=== PATIENT | male | born 1980 | race Caucasian/White ===

== ENCOUNTER 2022-02-22 04:44 | Inpatient (IN) ==
[2022-02-22] MEDS ORDERED: SODIUM CHLORIDE 0.9% 1000ML 1,000 ML IV ONE (04:52)
[2022-02-22] MEDS ORDERED: ONDANSETRON INJ 2 MG/ML 2 ML VIAL IV STA (04:52)
[2022-02-22] MEDS ORDERED: KETOROLAC TROMETHAMINE 15 MG/ML VIAL IV STA (04:54)
[2022-02-22] MEDS ORDERED: MoRPHine SULFATE 4 MG/ML 1 ML CARP\\VIAL IV STA ×2 (04:58→05:42)
--- NOTE | 2022-02-22 05:00 | Emergency Department Note ---
History of Present Illness General Chief complaint: Flank Pain Stated complaint: FLANK PAIN,NAUSEA,VOMITING Time Seen by Provider: 02/22/22 04:48 History of Present Illness Maximum Pain Intensity: 10 This 41-year-old presents to the ER complaining of sudden onset of left flank pain Location: Left flank Quality: Painful Severity: Moderate Duration: Today Timing: Today Context: Patient was concerned and came in Modifying factors: better with nothing; worse with nothing Patient denies chest pain, dyspnea, fevers, testicular pain, penile pain. He has had kidney stones before. Home Medications Medication Instructions Recorded Confirmed Type No Known Home Medications 02/22/22 02/22/22 History Allergies Allergy/AdvReac Type Severity Reaction Status Date / Time No Known Allergies Allergy Unknown Unverified 11/06/14 18:19 Past Med/Surg History Medical History Kidney stone Surgical History H/O adenoidectomy History of tonsillectomy No pertinent past surgical history Family History Grandmother Diabetes Social History Smoking Status: Current some day smoker Tobacco Type: Cigarettes Second Hand Exposure: Yes; Do You Dip or Chew Tobacco: No; Tobacco Cessation Education Requested by Patient: No Hx Alcohol Use: Yes (casually) Alcohol type: beer Hx Substance Use: No Preferred Language: Macedonian Communication Ability: Effective Track Repair Supervisor Required: No Beliefs That Will Affect Care: None Current Living Situation: Alone Other Information That Helps Us Care for You: No Feels Safe at Home: Yes Safety Concerns: Feels Safe At This Time Assistive Devices: None Review of Systems A total of 10 systems reviewed and were otherwise negative Physical Exam Vital Signs Vital Signs - 24 hr 02/22/22 04:52 02/22/22 05:19 02/22/22 05:20 Temperature 36.2 C L Temperature Source Temporal Artery Scan Pulse Rate 87 Pulse Rate [Finger] 69 Respiratory Rate 18 22 Respiratory Effort / Characteristics Non-Labored Spontaneous Non-Labored Respiratory Depth Normal Normal Respiratory Pattern Regular Blood Pressure 116/84 Blood Pressure [Right Arm] 120/81 Blood Pressure Mean 94 Blood Pressure Mean [Right Arm] 94 Blood Pressure Position Sitting Pulse Oximetry 98 100 99 Oxygen Delivery Method Room Air Room Air Room Air Sepsis Recent Fever Within 48 Hours No Sepsis New/Unexplained Change in Mental Status N/A Sepsis Action Taken by Nursing No Action Required 02/22/22 06:08 Temperature Temperature Source Pulse Rate Pulse Rate [Finger] 65 Respiratory Rate 16 Respiratory Effort / Characteristics Respiratory Depth Respiratory Pattern Blood Pressure Blood Pressure [Right Arm] 116/79 Blood Pressure Mean Blood Pressure Mean [Right Arm] 91 Blood Pressure Position Pulse Oximetry 97 Oxygen Delivery Method Room Air Sepsis Recent Fever Within 48 Hours Sepsis New/Unexplained Change in Mental Status Sepsis Action Taken by Nursing VITALS: Vitals are noted on the nurse's note and reviewed by myself. Vital signs stable. GENERAL: White male who appears in pain, in no acute distress, nondiaphoretic, w ell-developed well-nourished. SKIN: The skin was without rashes, erythema, edema, or bruising. There is no tenting of the skin. Capillary reflex less than 2 seconds. HEAD: Normocephalic atraumatic. EARS: External auditory canals clear, EYES: Pupils equal round and reactive to light and accommodation. Conjunctivae without injection, sclerae without icterus. Extraocular movements intact. NOSE: Patent, turbinates without inflammation or discharge. MOUTH: Mucous membranes moist. Pharynx without erythema or exudate. Uvula midline. Airway patent. Tongue does not deviate. NECK: Supple without nuchal rigidity. No lymphadenopathy. No thyromegaly. Cervical spine is nontender. No JVD. HEART: Regular rate and rhythm LUNGS: Clear to auscultation bilaterally without wheezes, rales or rhonchi. No retractions or accessory muscle use. ABDOMEN: Positive bowel sounds x 4. Normal tympanic percussion. Soft, nontender, without masses or organomegaly. Cobb sign negative. No guarding or rebound tenderness. No CVA tenderness MUSCULOSKELETAL: No muscle atrophy, erythema, or edema noted. NEURO: Patient was alert and oriented to person place and time. Normal sensation to light and sharp touch. No focal neurological deficits. Course Administered Medications Ceftriaxone Sodium 1,000 mg/ (Dextrose) 50 mls @ 100 mls/hr IV Q24H [facility]; Protocol Stop: 03/04/22 11:29 Last Infusion: 02/22/22 12:53 Dose: 0 mls/hr Documented By: Admin: 12/14/22 11:47 Dose: 100 mls/hr Documented By: SHANTANU Sodium Chloride (Nss 1000ml) 1,000 mls @ 125 mls/hr IV .Q8H SHERMAN Stop: 02/23/22 10:57 Last Admin: 02/22/22 18:42 Dose: 125 mls/hr Documented By: Infusion: 02/22/22 18:42 Dose: 125 mls/hr Documented By: Admin: 02/22/22 11:47 Dose: 125 mls/hr Documented By: SHANTANU Morphine Sulfate (Morphine Sulfate 2 Mg/Ml Carp) 2 mg IV Q3H PRN PRN Reason: Pain Stop: 03/08/22 10:57 Last Admin: 02/22/22 11:47 Dose: 2 mg Documented By: SHANTANU Discontinued Medications Diatrizoate Meglumine (Diatrizoate Meglumine 30% 100ml Vial) 8 ml INSTIL ONCE ONE Stop: 02/22/22 17:15 Last Admin: 02/22/22 16:58 Dose: 8 ml Documented By: [id number] Sodium Chloride (Nss 1000ml) 1,000 mls @ 999 mls/hr IV .Q1H1M ONE Stop: 02/22/22 05:52 Last Infusion: 02/22/22 06:08 Dose: 0 mls/hr Documented By: Admin: 02/22/22 05:07 Dose: 999 mls/hr Documented By: LISSETH Ketorolac Tromethamine (Ketorolac Tromethamine 15 Mg/Ml Vial) 10 mg IV NOW STA Stop: 02/22/22 04:55 Last Admin: 02/22/22 05:07 Dose: 10 mg Documented By: LISSETH Morphine Sulfate (Morphine Sulfate 4 Mg/Ml 1 Ml Carp\Vial) 4 mg IV NOW STA Stop: 02/22/22 04:59 Last Admin: 02/22/22 05:07 Dose: 4 mg Documented By: LISSETH Morphine Sulfate (Morphine Sulfate 4 Mg/Ml 1 Ml Carp\Vial) 4 mg IV NOW STA Stop: 02/22/22 05:43 Last Admin: 02/22/22 05:51 Dose: 4 mg Documented By: LISSETH Morphine Sulfate (Morphine Sulfate 2 Mg/Ml Carp) 2 mg IV NOW STA Stop: 02/22/22 08:10 Last Admin: 02/22/22 08:59 Dose: 2 mg Documented By: JAUN Ondansetron HCl (Ondansetron Inj 2 Mg/Ml 2 Ml Vial) 4 mg IV NOW STA Stop: 02/22/22 04:53 Last Admin: 02/22/22 05:07 Dose: 4 mg Documented By: LISSETH Medical Decision Making Medical Records Attestation: I reviewed the patient's medical records. Home Medications Current Medication List: was personally reviewed by me Laboratory Data Attestation: I reviewed the patient's lab results. Result diagrams: 02/22/22 05:00 02/22/22 05:00 Lab Results 02/22/22 02/22/22 02/22/22 Range/Units 05:00 05:00 05:33 WBC 11.70 H (4.8-10.8) K/ul RBC 4.66 (4.63-6.08) M/uL Hgb 14.8 (14.0-18.0) g/dl Hct 42.3 (40.1-51.0) % MCV 90.8 (80.0-100.0) fL MCH 31.8 (25.0-34.0) pg MCHC 35.0 (32.0-36.0) g/dL RDW Std Deviation 41.7 (36.4-46.3) fL RDW Coeff of Maikel 12.6 (11.5-14.5) % Plt Count 226 (130-400) K/uL MPV 11.9 (9.4-12.4) fL Immature Gran % (Auto) 0.3 % Neut % (Auto) 58.7 % Lymph % (Auto) 25.5 % [place] % (Auto) 11.9 % Eos % (Auto) 3.1 % Baso % (Auto) 0.5 % Neut # (Auto) 6.88 H (1.4-6.5) K/uL Lymph # (Auto) 2.98 (1.2-3.4) K/uL [place] # (Auto) 1.39 H (0.24-0.82) K/uL Eos # (Auto) 0.36 (0-0.50) K/uL Baso # (Auto) 0.06 (0-0.2) K/uL Immature Gran # (Auto) 0.03 H (0.00-0.02) K/uL Sodium 140 (136-145) mmol/L Potassium 4.1 (3.5-5.1) mmol/L Chloride 105 (98-107) mmol/L Carbon Dioxide 28 (21-32) mmol/L Anion Gap 7 (3-11) BUN 12 (6-23) mg/dl Creatinine 1.31 (0.6-1.4) mg/dl Est Cr Clr Drug Dosing Not Reportable Est GFR ( Amer) 78.4 ml/min Est GFR (Non-Af Amer) 67.6 ml/min BUN/Creatinine Ratio 9.2 L (10-20) Glucose 93 (70-99(Fasting)) mg/dl Calcium 8.8 (8.5-10.1) mg/dl Total Bilirubin 0.3 (0.2-1.0) mg/dl AST 19 (13-39) U/L ALT 21 (7-52) U/L Alkaline Phosphatase 58 (34-104) U/L Total Protein 6.9 (6.0-8.3) gm/dl Albumin 4.4 (3.4-5.0) gm/dl Globulin 2.5 (2.5-4.0) gm/dl Albumin/Globulin Ratio 1.8 (0.9-2) Lipase 72 (11-82) U/L SARS-CoV-2, RNA, NAAT NEGATIVE (NEGATIVE) Imaging Data Attestation: I personally reviewed and interpreted this imaging study as follows: Radiologist's Impression: Retrograde Pyelogram 02/22/22 00:00 FL retrograde includes kub CLINICAL HISTORY: LEFT CYSTO STENT COMPARISON STUDY: None. FLUOROSCOPY TIME: 6 seconds. FINDINGS: 3 fluoroscopic spot images of the abdomen demonstrate retrograde opacification of the left renal collecting system followed by placement of a left ureteral stent. Only the proximal portion of the stent is identified and appears in good position. IMPRESSION: Fluoroscopic assistance provided for left ureteral stent placement. ACT 112: Negative or not required by law. Electronically signed by: Nestor San M.D. 02/22/2022 5:25 PM [facility] Narrative Prior records/ancillary studies reviewed. Triage Nursing notes reviewed. Additional history obtained from the family. The patient's history was concerning for flank pain. Differential diagnosis: Etiologies such as renal colic, appendicitis, diverticulitis, mesenteric ischemia, aortic pathology, infections, inflammatory bowel disease, PUD, biliary pathology, UTI, as well as others were entertained. Physical examination findings: As above. ER treatment provided: Toradol morphine Zofran IV fluids On reassessment the patient felt better. Diagnostic interpretation by me: The labs revealed leukocytosis. Urinalysis revealed There was no sign of UTI. Imaging studies: Pending at time of signout but per my review was concerning for left renal colic with ureterolithiasis with moderate hydronephrosis. Case signed out to oncoming provider pending admission in stable condition. It appears that the patient has isolated renal colic from a left sided stone. Patient was still in severe amount of pain. Medicine was consulted. He will be evaluated for possible admission. By the evaluation outlined above emergent etiologies such as appendicitis, diverticulitis, mesenteric ischemia, aortic pathology, infections, inflammatory bowel disease, PUD, biliary pathology, UTI, as well as others were deemed relatively unlikely. The pt informed about the findings as listed above. All questions were answered and pleased with the treatment. The chart was completed utilizing impok Speech voice recognition software. Grammatical errors, random word insertions, pronoun errors, and incomplete sentences are an occassional consequence of this system due to software limitations, ambient noise, and hardware issues. Any formal questions or concerns about the content, text, or information contained within the body of this dictation should be directly addressed to the physician pastrycook's assistant for clarification. Impression & Plan Renal colic on left side, Ureterolithiasis Discharge Plan Visit Data Chief Complaint: Flank Pain Stated Complaint: FLANK PAIN,NAUSEA,VOMITING ED Provider: Carmita Crowe ED Midlevel Provider: Pasquale Ge Discharge Problem: Renal colic on left side, Ureterolithiasis Patient Disposition: Admitted As Inpatient Condition: Good Discharge Instructions Interventions: ED Discharge Assessment Last Done: 02/22/22 10:59
[2022-02-22 05:14] LABS: Basophils # (auto) 0.06 K/uL (0-0.2); Basophils % (auto) 0.5 %; Eosinophils # (auto) 0.36 K/uL (0-0.50); Eosinophils % (auto) 3.1 %; Hematocrit (blood only) 42.3 % (40.1-51.0); Hemoglobin 14.8 g/dl (14.0-18.0); Immature Granulocytes # (auto) 0.03 K/uL (0.00-0.02); Immature Granulocytes % (auto) 0.3 %; Lymphocytes # (auto) 2.98 K/uL (1.2-3.4); Lymphocytes % (auto) 25.5 %; Mean Corpuscular Hemoglobin 31.8 pg (25.0-34.0); Mean Corpuscular Volume 90.8 fL (80.0-100.0); Mean Platelet Volume 11.9 fL (9.4-12.4); Monocytes # (auto) 1.39 K/uL (0.24-0.82); Monocytes % (auto) 11.9 %; Neutrophils # (auto) 6.88 K/uL (1.4-6.5); Neutrophils % (auto) 58.7 %; Platelet Count 226 K/uL (130-400); RDW Coefficient of Variation 12.6 % (11.5-14.5); RDW Standard Deviation 41.7 fL (36.4-46.3); Red Blood Count 4.66 M/uL (4.63-6.08)
[2022-02-22 05:37] LABS: Alanine Aminotransferase 21 U/L (7-52); Albumin Globulin Ratio 1.8 (0.9-2); Albumin Level 4.4 gm/dl (3.4-5.0); Alkaline Phosphatase 58 U/L (34-104); Anion Gap 7 (3-11); Aspartate Aminotransferase 19 U/L (13-39); BUN Creatinine Ratio 9.2 (10-20); Bilirubin,Total 0.3 mg/dl (0.2-1.0); Blood Urea Nitrogen 12 mg/dl (6-23); Calcium 8.8 mg/dl (8.5-10.1); Carbon Dioxide 28 mmol/L (21-32); Chloride 105 mmol/L (98-107); Est GFR (African American) 78.4 ml/min; Est GFR (Non-African American) 67.6 ml/min; Globulin 2.5 gm/dl (2.5-4.0); Glucose 93 mg/dl (70-99(Fasting)); Lipase 72 U/L (11-82); Potassium 4.1 mmol/L (3.5-5.1); Sodium 140 mmol/L (136-145); Total Protein 6.9 gm/dl (6.0-8.3)
[2022-02-22 06:18] LABS: Appearance Urine Turbid (Clear); Bilirubin Urine Negative (Negative); Blood Urine 3+ (Negative); Cast Urine Automated 0 /lpf (0-5); Color Urine Yellow; Epithelial Cell Urine Auto 0-5 /lpf (0-5); Glucose Urine UA Negative (Negative); Ketones Urine Negative (Negative); Leukocyte Esterase Urine Negative (Negative); Nitrite Urine Negative (Negative); RBC Urine Automated >30 /hpf (0-4); Specific Gravity Urine 1.021 (1.000-1.030); Urobilinogen Urine Negative (Negative); pH Urine 7.5 (4.5-7.5)
[2022-02-22 06:25] LABS: Protein Urine Trace (Negative)
[2022-02-22 06:44] LABS: Calcium Oxalate Crystals Urine Present (None Prsent)
[2022-02-22 06:47] LABS: Bacteria Urine Automated 2+ (Negative)
--- NOTE | 2022-02-22 07:00 | CT Scan Report ---
CT OF THE ABDOMEN AND PELVIS WITHOUT CONTRAST CLINICAL HISTORY: Left flank pain. COMPARISON STUDY: KUB November 06, 2014. TECHNIQUE: Axial images of the abdomen and pelvis were obtained without IV contrast. Images were revi ewed in the axial, sagittal, and coronal planes. Automated exposure control was utilized for the mason dy. A dose lowering technique was utilized adhering to the principles of ALARA. FINDINGS: Lung bases are unremarkable. No pneumatosis, free air or portal venous gas is present. A 9 mm x 5 mm proximal left ureteral calculus at the L4 level results in moderate left hydronephrosis wit h moderate left perinephric fluid. No additional ureteral calculi are present. There is no right hydr onephrosis. Several additional small bilateral renal calculi measure up to 3 mm. Evaluation of the re mainder of the abdomen and pelvis is suboptimal on this unenhanced exam. Liver, spleen, adrenal gland s and pancreas are unremarkable. No evidence for a bowel obstruction. There is no lymphadenopathy. No suspicious lesions or fractures are identified within visualized skeletal structures. IMPRESSION: 1. 9 mm x 5 mm proximal left ureteral calculus which results in moderate left hydronephrosis with mod erate perinephric fluid. 2. Bilateral nephrolithiasis. ACT 112: Negative or not required by law. Electronically signed by: Romero Morelos M.D. 02/22/2022 6:58 AM
--- NOTE | 2022-02-22 07:47 | History & Physical Report ---
Date of Service February 22, 2022 Assessment & Plan (1) Renal colic on left side: Plan: Left Renal Colic Obstructive Uropathy Nephrolithiasis Rule out UTI -CT abdomen showed: 9 mm x 5 mm proximal left ureteral calculus which results in moderate left hydronephrosis with moderate perinephric fluid. Bilateral nephrolithiasis. -- Blood, urine culture pending Continue IV fluids Start on IV ceftriaxone empirically Pyridium PRN Urology consulted Strain Urine Bladder scan PRN NPO for possible intervention Pain control Depression ADHD Currently not on Meds DVT Px: SCDs for now History of Present Illness Chief Complaint: Left Flank pain Primary Care Provider: NO PCP Patient is a 41-year-old male with history of depression, nephrolithiasis, ADHD and no other significant past medical history presents with history of left flank pain since 1 day duration. Patient states left flank pain is constant, nonradiating, increases with movement, temporarily relieved with pain medication, sharp to dull in quality, associated with dysuria and has weak urinary flow. Patient states having nausea and vomiting secondary to pain this morning and admits to having chills as well. Denies any history of chest pain, dyspnea, palpitations, dizziness, cough, fever, headache, abdominal pain, blood in stools, diarrhea, hematuria. Allergies Allergy/AdvReac Type Severity Reaction Status Date / Time No Known Allergies Allergy Unknown Unverified 11/06/14 18:19 Home Medications Medication Instructions Recorded Confirmed Type No Known Home Medications 02/22/22 02/22/22 History Past Med/Surg History Medical History Kidney stone Surgical History H/O adenoidectomy History of tonsillectomy No pertinent past surgical history Family History Grandmother Diabetes Social History Smoking Status: Current some day smoker Tobacco Type: Cigarettes Hx Alcohol Use: Yes Hx Substance Use: No Beliefs That Will Affect Care: Spiritual Feels Safe at Home: Yes Review of Systems Review of Systems: All systems reviewed & are unremarkable except as noted in Subjective Physical Exam Physical Exam: Physical Exam: Vitals signs as noted above General Appearance:Moderately built and nourished, no apparent distress Head: normocephalic, Atraumatic Eyes: normal inspection, EOMI Neck: supple, Trachea midline Respiratory/Chest: Normal breath sounds, CTA, No accessory muscle use Cardiovascular: S1, S2, No murmur Abdomen/GI:Soft, +Left flanl, LLQ tender, Bowel sounds present Extremities/Musculoskeletal:normal inspection, no edema Neurologic/Psych:AAOX3, grossly no focal neurological deficits Skin: normal color, warm Results & Data Results & Data ([facility]) Vital Signs (Past 12 Hours) Vital Signs Temp Pulse Pulse Resp BP BP Pulse Ox 02/22/22 06:08 65 16 116/79 97 02/22/22 05:20 99 02/22/22 05:19 69 22 120/81 100 02/22/22 04:52 36.2 C L 87 18 116/84 98 O2 Del Method 02/22/22 06:08 Room Air 02/22/22 05:20 Room Air 02/22/22 05:19 Room Air 02/22/22 04:52 Room Air Laboratory Results Short CBC 02/22/22 Range/Units 05:00 WBC 11.70 H (4.8-10.8) K/ul Hgb 14.8 (14.0-18.0) g/dl Hct 42.3 (40.1-51.0) % Plt Count 226 (130-400) K/uL BMP 02/22/22 05:00 Sodium 140 Potassium 4.1 Chloride 105 Carbon Dioxide 28 BUN 12 Creatinine 1.31 Glucose 93 Calcium 8.8 Liver Function 02/22/22 Range/Units 05:00 Total Bilirubin 0.3 (0.2-1.0) mg/dl AST 19 (13-39) U/L ALT 21 (7-52) U/L Alkaline Phosphatase 58 (34-104) U/L Albumin 4.4 (3.4-5.0) gm/dl Urine 02/22/22 Range/Units Unknown Urine Color Yellow Urine Appearance Turbid A (Clear) Urine pH 7.5 (4.5-7.5) Ur Specific [place] 1.021 (1.000-1.030) Urine Protein Trace H (Negative) Urine Glucose (UA) Negative (Negative) Diagnostic Findings CT Abd:. 9 mm x 5 mm proximal left ureteral calculus which results in moderate left hydronephrosis with moderate perinephric fluid. Bilateral nephrolithiasis.
[2022-02-22] MEDS ORDERED: MoRPHine SULFATE 2 MG/ML CARP IV STA (08:09)
--- NOTE | 2022-02-22 08:12 | Emergency Department Note ---
ED Visit Note Patient case signed out to me at 0650hrs on 02/22/[address] imaging of the abdomen/pelvis being read. Please read Damari Holm PA-C note regarding chief complaint, HPI, ROS, PE/MDM/decision making up until point of signout. CT imaging resulted. Results below. I reviewed these with the patient and provided him a copy of the report. Patient notes return of discomfort. Additional IV analgesia ordered. Case discussed with the hospitalist service for further evaluation and management. Please refer to further documentation regarding his stay. Patient happy with plan of care. Patient does not have any infectious symptoms at this time. CT OF THE ABDOMEN AND PELVIS WITHOUT CONTRAST CLINICAL HISTORY: Left flank pain. COMPARISON STUDY: KUB November 06, 2014. TECHNIQUE: Axial images of the abdomen and pelvis were obtained without IV contrast. Images were reviewed in the axial, sagittal, and coronal planes. Automated exposure control was utilized for the study. A dose lowering technique was utilized adhering to the principles of ALARA. FINDINGS: Lung bases are unremarkable. No pneumatosis, free air or portal venous gas is present. A 9 mm x 5 mm proximal left ureteral calculus at the L4 level results in moderate left hydronephrosis with moderate left perinephric fluid. No additional ureteral calculi are present. There is no right hydronephrosis. Several additional small bilateral renal calculi measure up to 3 mm. Evaluation of the remainder of the abdomen and pelvis is suboptimal on this unenhanced exam . Liver, spleen, adrenal glands and pancreas are unremarkable. No evidence for a bowel obstruction. There is no lymphadenopathy. No suspicious lesions or fractures are identified within visualized skeletal structures. IMPRESSION: 1. 9 mm x 5 mm proximal left ureteral calculus which results in moderate left hydronephrosis with moderate perinephric fluid. 2. Bilateral nephrolithiasis. ACT 112: Negative or not required by law. Electronically signed by: Romero Morelos M.D. 02/22/2022 6:58 AM .
[2022-02-22] MEDS ORDERED: ONDANSETRON INJ 2 MG/ML 2 ML VIAL IV PRN (10:58)
[2022-02-22] MEDS ORDERED: PHENAZOPYRIDINE HCL 100 MG TAB PO PRN (10:58)
[2022-02-22] MEDS ORDERED: ACETAMINOPHEN 325 MG TAB PO PRN (10:58)
[2022-02-22] MEDS ORDERED: MoRPHine SULFATE 2 MG/ML CARP IV PRN (10:58)
[2022-02-22] MEDS ORDERED: POLYETHYLENE (MIRALAX) 17 GM PACK PO PRN (10:58)
[2022-02-22] MEDS: SODIUM CHLORIDE 0.9% 1000ML 1,000 ML IV SCH ×2 (11:47→18:42)
[2022-02-22] MEDS: cefTRIAXone SODIUM 1,000 MG in DEXTROSE 5% AD-VAN 50 ML IV SCH (11:47)
--- NOTE | 2022-02-22 11:49 | Urology Consultation ---
Date of Consultation February 22, 2022 Assessment & Plan (1) Ureterolithiasis: (2) Renal colic on left side: Plan 41yo M admitted with intractable left flank pain secondary to a 9x5mm proximal left stone causing moderate hydronephrosis. -He is afebrile and hemodynamically stable. -Mild leukocytosis and normal renal function. -Urinalysis showing 3+blood, 2+ bacteria, calcium oxalate crystals present, culture pending. -We discussed acute stone management with cystoscopy and stent placement. Patient agreeable. Risks and benefits discussed as per consent. -Will plan to proceed to OR today for cystoscopy, left retrograde pyelogram, left ureteral stent placement. -Pt covered with scheduled IV Ceftriaxone. -Keep NPO. Continue supportive care, antibiotic therapy, and prn pain management. -Urology will follow. Supervising Physician Co-Signing Physician Notes Agree with plan. To OR for cystoscopy, left retrograde, left stent placement Consent obtained Patient marked History of Present Illness Reason for Consultation: Left ureteral stone Attending Physician: João Alicia MD History of Present Illness 41-year-old male who presented to the ED overnight due to sudden onset of severe left flank pain. CT A/P on arrival demonstrated a 9 x 5 mm proximal left ureteral stone resulting in moderate left hydronephrosis. He is afebrile and hemodynamically stable. Mild leukocytosis of 11.70 and creatinine 1.31. Urinalysis with 3+ blood, negative nitrate, >30 RBC, negative LE, 2+ bacteria, calcium oxalate crystals present. Urine and blood cultures are pending. He was started on IV ceftriaxone. Patient admitted to medicine for pain management. Urology consulted for left ureteral stone. CT abdomen pelvis- 1. 9 mm x 5 mm proximal left ureteral calculus which results in moderate left hydronephrosis with moderate perinephric fluid. 2. Bilateral nephrolithiasis. Patient examined at bedside in the ED. Asleep on arrival, awakened to name. No acute distress. Still with left-sided flank pain. Denies fevers or chills. Some nausea, no vomiting. Voiding without issue. Denies hematuria or dysuria. Has been NPO. Patient reports a history of stones with spontaneous passage several years ago. Denies pertinent family history. Allergies Allergy/AdvReac Type Severity Reaction Status Date / Time No Known Allergies Allergy Unknown Unverified 11/06/14 18:19 Home Medications Medication Instructions Recorded Confirmed Type No Known Home Medications 02/22/22 02/22/22 History Patient History Medical History Kidney stone Surgical History H/O adenoidectomy History of tonsillectomy No pertinent past surgical history Family History Grandmother Diabetes Social History Smoking Status: Current some day smoker Tobacco Type: Cigarettes Hx Alcohol Use: Yes Hx Substance Use: No Beliefs That Will Affect Care: Spiritual Feels Safe at Home: Yes Review of Systems Review of Systems: All systems reviewed & are unremarkable except as noted in HPI & below Physical Exam Constitutional: no acute distress Appears uncomfortable Eyes: PERRL, conjunctivae normal, anicteric sclerae ENMT: external ear and nose normal, oropharynx normal Neck: normal visual inspection Respiratory: normal respiratory effort; no respiratory distress and no labored breathing Gastrointestinal (Abdomen): Inspection/Auscultation: abdomen normal to inspection Musculoskeletal: Head/Neck/Chest: normocephalic Skin: No visible rashes or lesions to exposed skin areas Neurologic: awake Psychiatric: Orientation: alert, oriented x 3 and cooperative Genitourinary: Left flank tenderness with palpation Results & Data ([facility]) Vital Signs (Past 12 Hours) Vital Signs Temp Pulse Pulse Resp BP BP Pulse Ox 02/22/22 09:00 74 16 102/70 98 02/22/22 06:08 65 16 116/79 97 02/22/22 05:20 99 02/22/22 05:19 69 22 120/81 100 02/22/22 04:52 36.2 C L 87 18 116/84 98 O2 Del Method 02/22/22 09:00 Room Air 02/22/22 06:08 Room Air 02/22/22 05:20 Room Air 02/22/22 05:19 Room Air 02/22/22 04:52 Room Air PG Care Time/CCT Total # of Minutes Spent Total Time Spent with Patient: Total time spent is greater than 50% in coordination of care (as documented) at patient's floor/unit and/or counseling patient: Coding Level of Care Code 70826 Inpt Consult Level 4 Diagnoses Ureterolithiasis N20.1 Renal colic on left side N23
--- NOTE | 2022-02-22 16:20 | Anesthesiology Consultation ---
Date of Service February 22, 2022 Assessment & Plan (1) Encounter for pre-operative examination: Chart Review Chart Review: Acceptable Risk for Surgery History Surgery Operation Date: 02/22/22 13:00 Proposed Procedures p Cystoscopy Left Retrograde Pyelogram, Left Ureteral Stent Insertion - Cory Hugo MD Height/Weight Height: 5 ft 6 in Weight: 78 kg Allergies Allergy/AdvReac Type Severity Reaction Status Date / Time No Known Allergies Allergy Unknown Unverified 11/06/14 18:19 Medications Home Medications Medication Instructions Recorded Confirmed Last Taken No Known Home Medications 02/22/22 02/22/22 Unknown Active Medications Generic Name Dose Route Start Last Admin Trade Name Freq PRN Reason Stop Dose Admin Ceftriaxone Sodium 1,000 mg/ 50 mls @ 100 mls/hr 02/22/22 11:30 02/22/22 12:53 Dextrose IV 03/04/22 11:29 Infused Q24H SHERMAN Infusion Protocol Sodium Chloride 1,000 mls @ 125 mls/hr 02/22/22 10:58 02/22/22 11:47 Nss 1000ml IV 02/23/22 10:57 125 mls/hr .Q8H SHERMAN Administration Morphine Sulfate 2 mg 02/22/22 10:58 02/22/22 11:47 Morphine Sulfate 2 Mg/Ml Carp IV 03/08/22 10:57 2 mg Q3H PRN Administration Pain Past Medical History Medical History Kidney stone Past Family History Family History Grandmother Diabetes Past Surgical History Surgical History H/O adenoidectomy History of tonsillectomy No pertinent past surgical history Social History Smoking Status: Current some day smoker Hx Alcohol Use: Yes Hx Substance Use: No Physical Exam Vital Signs Last Vital Signs Temp 36.2 C L 02/22/22 04:52 Pulse 61 02/22/22 13:00 Resp 18 02/22/22 13:00 BP 97/58 L 02/22/22 13:00 Pulse Ox 97 02/22/22 13:00 O2 Del Method 02/22/22 13:00 Testing Laboratory Results 02/22/22 05:00 02/22/22 05:00 Urine Color Yellow 02/22/22 Unknown Urine Appearance Turbid (Clear) A 02/22/22 Unknown Urine pH 7.5 (4.5-7.5) 02/22/22 Unknown Ur Specific [place] 1.021 (1.000-1.030) 02/22/22 Unknown Urine Protein Trace (Negative) H 02/22/22 Unknown Urine Glucose (UA) Negative (Negative) 02/22/22 Unknown Urine Ketones Negative (Negative) 02/22/22 Unknown Urine Nitrite Negative (Negative) 02/22/22 Unknown Ur Leukocyte Esterase Negative (Negative) 02/22/22 Unknown Urine WBC (Auto) 1-5 /hpf (0-5) 02/22/22 Unknown Urine RBC (Auto) >30 /hpf (0-4) H 02/22/22 Unknown U Hyaline Cast (Auto) 0 /lpf (0-5) 02/22/22 Unknown U Epithel Cells (Auto) 0-5 /lpf (0-5) 02/22/22 Unknown Urine Bacteria (Auto) 2+ (Negative) H 02/22/22 Unknown
[2022-02-22] MEDS ORDERED: PROPOFOL IV EMULSION 10 MG/ML 20 ML VIAL IV ONE ×2 (16:30)
[2022-02-22] MEDS ORDERED: LIDOCAINE 2% MPF LOCAL 5 ML VIAL INFIL ONE (16:32)
[2022-02-22] MEDS ORDERED: MIDAZOLAM HCL 1 MG/ML 2ML VIAL ONE (16:32)
[2022-02-22] MEDS ORDERED: fentaNYL citrate 100 MCG/2 ML VIAL ONE (16:32)
[2022-02-22] MEDS ORDERED: DEXAMETHASONE SOD INJ 4 MG/ML VIAL ONE (16:35)
[2022-02-22] MEDS ORDERED: ONDANSETRON INJ 2 MG/ML 2 ML VIAL ONE (16:35)
--- NOTE | 2022-02-22 17:03 | Post Operative Brief Note ---
PG Immediate Post Op with CF Date of Surgery February 22, 2022 Pre & Post Diagnosis Operation Date: 02/22/22 13:00 <No data on this case meets the specified criteria> I identified the patient and participated in the time-out.: Yes Procedure Operation Date: 02/22/22 13:00 Actual Procedures p Cystoscopy Left Retrograde Pyelogram, Left Ureteral Stent Insertion - Cory Hugo MD Surgeon Cory Hugo MD Brim Stretcher None Estimated Blood Loss 0 Findings See Below Mild meatal stenosis Moderate left hydro Stent in appropriate position Drains Other (6x26 L stent ) Complications none
--- NOTE | 2022-02-22 17:09 | Operative Report ---
PG Post Operative Report Pre & Post Diagnosis Operation Date: 02/22/22 13:00 Pre-Op Diagnosis: LEFT URETERAL CALCULUS Post-Op Diagnosis: LEFT URETERAL CALCULUS I identified the patient and participated in the time-out.: Yes Procedure Operation Date: 02/22/22 13:00 Actual Procedures p Cystoscopy Left Retrograde Pyelogram with radiographic interpretation, Left Ureteral Stent Insertion - Cory Hugo MD Surgeon Cory Hugo MD Staff Assistant None Estimated Blood Loss 0 Findings See Below Mild meatal stenosis that accommodated the scope Left retrograde showed moderate hydronephrosis Stent in appropriate position Specimens None Drains 6 Lithuanian by 26 cm left ureteral stent Complications none Indications 41-year-old man with a left proximal obstructing ureteral calculus and a UA somewhat concerning for infection. Stone was reasonably sized so unlikely that he had passed on its own. Risks and benefits discussed and patient opted for stent placement. Description of Procedure After informed consent was obtained, the patient was transported operative suite. MAC anesthesia was induced. The patient was placed in dorsal lithotomy position prepped and draped in a sterile fashion. They received preoperative ceftriaxone for antibiotic prophylaxis. An appropriate surgical timeout was performed. A 22 Lithuanian rigid scope was inserted per urethra into the bladder. Hannon cysto scopy revealed no stones or lesions. I turned my attention the left ureteral orifice and intubated this with a 5 Lithuanian open-ended catheter. A left retrograde pyelogram was shot which showed moderate hydronephrosis. A sensor wire was advanced into the kidney and confirmed fluoroscopically. A 6 Lithuanian by 26 cm left ureteral stent was deployed with a good proximal coil in the renal pelvis and a good distal coil noted in the bladder. These were confirmed fluoroscopically and under direct visualization, respectively. The bladder was emptied and the scope was removed. This concluded the end of the case. All counts were correct at the end of the case. I was present, scrubbed, and actively participated for the entirety of the procedure. I attest to the content of the Intraoperative Record and any orders documented therein. Any exceptions are noted below.
[2022-02-22] MEDS ORDERED: DIATRIZOATE MEGLUMINE 30% 100ML VIAL INSTIL ONE (17:14)
--- NOTE | 2022-02-22 17:26 | Fluoroscopy Report ---
FL retrograde includes kub CLINICAL HISTORY: LEFT CYSTO STENT COMPARISON STUDY: None. FLUOROSCOPY TIME: 6 seconds. FINDINGS: 3 fluoroscopic spot images of the abdomen demonstrate retrograde opacification of the left renal collecting system followed by placement of a left ureteral stent. Only the proximal portion of the stent is identified and appears in good position. IMPRESSION: Fluoroscopic assistance provided for left ureteral stent placement. ACT 112: Negative or not required by law. Electronically signed by: Nestor San M.D. 02/22/2022 5:25 PM
--- NOTE | 2022-02-22 17:52 | Anesthesiology Progress Note ---
Date of Service February 22, 2022 Anesthesia Post Procedure Vital Signs Vital Signs: Temp Pulse Pulse Pulse Resp BP BP 02/22/22 17:40 36.2 C L 71 13 106/72 02/22/22 17:30 77 17 109/73 02/22/22 17:20 66 18 101/65 02/22/22 17:11 36.3 C L 71 19 93/60 L 02/22/22 16:04 36.4 C L 71 18 103/73 02/22/22 13:00 61 18 97/58 L 02/22/22 11:00 56 L 14 106/68 02/22/22 11:00 02/22/22 09:00 74 16 102/70 02/22/22 06:08 65 16 116/79 02/22/22 05:20 02/22/22 05:19 69 22 120/81 02/22/22 04:52 36.2 C L 87 18 116/84 Pulse Ox Pulse Ox O2 Del Method O2 Del Method O2 Flow Rate 02/22/22 17:40 97 Room Air 02/22/22 17:30 100 Oxymask 4 02/22/22 17:20 100 Oxymask 6 02/22/22 17:11 100 Oxymask 6 02/22/22 16:04 97 Room Air 02/22/22 13:00 97 Room Air 02/22/22 11:00 98 Room Air 02/22/22 11:00 98 Room Air 02/22/22 09:00 98 Room Air 02/22/22 06:08 97 Room Air 02/22/22 05:20 99 Room Air 02/22/22 05:19 100 Room Air 02/22/22 04:52 98 Room Air Pain Intensity Left Flank: Pain Intensity: 9 Transfer of Care Handoff Completed per policy Notes Mental Status: alert / awake / arousable and participated in evaluation Patient Amnestic to Procedure: Yes Nausea / Vomiting: adequately controlled Pain: adequately controlled Airway Patency, RR, SpO2: stable & adequate BP & HR: stable & adequate Hydration State: stable & adequate Anesthetic Complications: no major complications apparent and Pt Satisfied with anesthetic care
[2022-02-22] MEDS: KETOROLAC TROMETHAMINE 15 MG/ML VIAL IV PRN (23:19)
[2022-02-23] MEDS: SODIUM CHLORIDE 0.9% 1000ML 1,000 ML IV SCH (02:55)
[2022-02-23] MEDS: KETOROLAC TROMETHAMINE 15 MG/ML VIAL IV PRN (08:15)
[2022-02-23 08:35] LABS: Hematocrit (blood only) 39.7 % (40.1-51.0); Hemoglobin 13.7 g/dl (14.0-18.0); Mean Corpuscular Hemoglobin 31.5 pg (25.0-34.0); Mean Corpuscular Hgb Conc 34.5 g/dL (32.0-36.0); Mean Corpuscular Volume 91.3 fL (80.0-100.0); Mean Platelet Volume 12.3 fL (9.4-12.4); Platelet Count 218 K/uL (130-400); RDW Coefficient of Variation 12.4 % (11.5-14.5); RDW Standard Deviation 41.6 fL (36.4-46.3); Red Blood Count 4.35 M/uL (4.63-6.08)
[2022-02-23 09:03] LABS: BUN Creatinine Ratio 9.7 (10-20); Calcium 8.2 mg/dl (8.5-10.1); Creatinine Clr Calc Pharmacy 85.4 ml/min; Est GFR (African American) 93.7 ml/min; Est GFR (Non-African American) 80.9 ml/min; Magnesium 1.8 mg/dl (1.7-2.4); Potassium 4.4 mmol/L (3.5-5.1)
[2022-02-23] MEDS: cefTRIAXone SODIUM 1,000 MG in DEXTROSE 5% AD-VAN 50 ML IV SCH (11:16)
--- NOTE | 2022-02-23 12:33 | Urology Progress Note ---
Date of Service February 23, 2022 Assessment & Plan (1) Ureterolithiasis: (2) Renal colic on left side: Plan 41yo M admitted with intractable left flank pain secondary to a 9x5mm proximal left stone causing moderate hydronephrosis. -Postop day #1 status post cystoscopy, left ureteral stent placement. -Tolerating the ureteral stent with minimal bother. Some hematuria and dysuria as expected. -Afebrile and hemodynamically stable. -Leukocytosis improved, normal renal function. -Urine culture prelim no growth, blood cultures preliminary no growth x24 hours. -Continues on IV ceftriaxone, follow cultures. -Okay for discharge from perspective. -Will arrange outpatient follow-up to discuss definitive stone treatment. -Recommend Tamsulosin, prn Pyridium and prn pain medication for stent management. -Urology will sign-off. Please contact us with any further questions, concerns, or changes in patient status. Admission and Anticipated Discharge Date Admission Date: February 22, 2022 Subjective Patient examined at bedside. Awake, resting in bed on arrival. No acute distress. Still having some left flank pain, but overall improved since stent placement. Voiding without issue. Reports some hematuria and dysuria. Feels he is emptying his bladder well. Denies fevers or chills. Denies nausea or vomiting. Review of Systems Constitutional: as per Subjective / HPI Gastrointestinal: as per Subjective / HPI Genitourinary: + as per Subjective / HPI Physical Exam Constitutional: no acute distress Respiratory: no respiratory distress and no labored breathing Neurologic: awake Psychiatric: Orientation: alert and oriented x 3 Results & Data ([facility]) Vital Signs (Past 12 Hours) Vital Signs Temp Pulse Pulse Resp BP Pulse Ox O2 Del Method 02/23/22 11:18 36.4 C L 98 H 20 92/52 L 96 Room Air 02/23/22 08:04 36.8 C 91 H 20 101/59 L 97 Room Air 02/23/22 04:01 36.6 C 91 H 16 103/57 L 95 Room Air PG Care Time/CCT Total # of Minutes Spent Total Time Spent with Patient: Total time spent is greater than 50% in coordination of care (as documented) at patient's floor/unit and/or counseling patient: Coding Level of Care Code 08421 Subseq Hosp Care Lvl 2 Diagnoses Ureterolithiasis N20.1 Renal colic on left side N23
--- NOTE | 2022-02-23 14:39 | Hospitalist Progress Note ---
Date of Service February 23, 2022 Assessment & Plan (1) Renal colic on left side: Plan: Left Renal Colic Obstructive Uropathy Nephrolithiasis UTI ruled out S/P cystoscopy, left retrograde pyelogram, left ureteral stent placement by Dr. Hugo on 02/22/22 -CT abdomen showed: 9 mm x 5 mm proximal left ureteral calculus which results in moderate left hydronephrosis with moderate perinephric fluid. Bilateral nephrolithiasis. -- Blood, urine culture Negative to date Continue IV fluids Empirically received ceftriaxone Pyridium PRN Appreciate Urology Input Strain Urine Pain control Started on Flomax Needs follow-up with urology upon discharge Depression ADHD Currently not on Meds DVT Px: SCDs Admission and Anticipated Discharge Date Admission Date: February 22, 2022 Subjective Patient is seen and examined at bedside States having some ureteral stent discomfort Also reports minimal hematuria Denies nausea, vomiting, chest pain, dyspnea, dizziness No other complaints Review of Systems Review of Systems: All systems reviewed & are unremarkable except as noted in Subjective Physical Exam Physical Exam: Physical Exam: Vitals signs as noted above General Appearance:Moderately built and nourished, no apparent distress Head: normocephalic, Atraumatic Eyes: normal inspection, EOMI Neck: supple, Trachea midline Respiratory/Chest: Normal breath sounds, CTA, No accessory muscle use Cardiovascular: S1, S2, No murmur Abdomen/GI:Soft, +mild tender, Bowel sounds present Extremities/Musculoskeletal:normal inspection, no edema Neurologic/Psych:AAOX3, grossly no focal neurological deficits Skin: normal color, warm Results & Data Results & Data ([facility]) Vital Signs (Past 12 Hours) Vital Signs Temp Pulse Pulse Resp BP Pulse Ox O2 Del Method 02/23/22 13:01 86 109/73 97 Room Air 02/23/22 11:18 36.4 C L 98 H 20 92/52 L 96 Room Air 02/23/22 08:04 36.8 C 91 H 20 101/59 L 97 Room Air 02/23/22 04:01 36.6 C 91 H 16 103/57 L 95 Room Air Laboratory Results Short CBC 02/23/22 Range/Units 07:42 WBC 8.30 (4.8-10.8) K/ul Hgb 13.7 L (14.0-18.0) g/dl Hct 39.7 L (40.1-51.0) % Plt Count 218 (130-400) K/uL [facility] 02/23/22 07:42 Sodium 137 Potassium 4.4 Chloride 105 Carbon Dioxide 27 BUN 11 Creatinine 1.13 Glucose 115 H Calcium 8.2 L
--- NOTE | 2022-02-23 20:16 | Discharge Summary ---
Date of Service February 23, 2022 Admission HPI Per Admitting Provider Patient is a 41-year-old male with history of depression, nephrolithiasis, ADHD and no other significant past medical history presents with history of left flank pain since 1 day duration. Patient states left flank pain is constant, nonradiating, increases with movement, temporarily relieved with pain medication, sharp to dull in quality, associated with dysuria and has weak urinary flow. Patient states having nausea and vomiting secondary to pain this morning and admits to having chills as well. Denies any history of chest pain, dyspnea, palpitations, dizziness, cough, fever, headache, abdominal pain, blood in stools, diarrhea, hematuria. Principal Diagnosis Left Renal Colic Obstructive Uropathy Nephrolithiasis Discharge Data Allergies Allergy/AdvReac Type Severity Reaction Status Date / Time No Known Allergies Allergy Unknown Unverified 11/06/14 18:19 Consultations 02/22/22 07:46 ED Decision to Admit Stat 02/22/22 07:56 Consult Urology Routine Procedures Performed Operation Date: 02/22/22 13:00 Actual Procedures p Cystoscopy Left Retrograde Pyelogram, Left Ureteral Stent Insertion - Cory Hugo MD Ordered Studies 02/22/22 FL retrograde includes kub Routine 02/22/22 04:54 CT abd pelvis wo con Urgent Laboratory Results WBC 8.30 K/ul (4.8-10.8) 02/23/22 07:42 RBC 4.35 M/uL (4.63-6.08) L 02/23/22 07:42 Hgb 13.7 g/dl (14.0-18.0) L 02/23/22 07:42 Hct 39.7 % (40.1-51.0) L 02/23/22 07:42 MCV 91.3 fL (80.0-100.0) 02/23/22 07:42 MCH 31.5 pg (25.0-34.0) 02/23/22 07:42 MCHC 34.5 g/dL (32.0-36.0) 02/23/22 07:42 RDW Std Deviation 41.6 fL (36.4-46.3) 02/23/22 07:42 RDW Coeff of Maikel 12.4 % (11.5-14.5) 02/23/22 07:42 Plt Count 218 K/uL (130-400) 02/23/22 07:42 MPV 12.3 fL (9.4-12.4) 02/23/22 07:42 Immature Gran % (Auto) 0.3 % 02/22/22 05:00 Neut % (Auto) 58.7 % 02/22/22 05:00 Lymph % (Auto) 25.5 % 02/22/22 05:00 [place] % (Auto) 11.9 % 02/22/22 05:00 Eos % (Auto) 3.1 % 02/22/22 05:00 Baso % (Auto) 0.5 % 02/22/22 05:00 Neut # (Auto) 6.88 K/uL (1.4-6.5) H 02/22/22 05:00 Lymph # (Auto) 2.98 K/uL (1.2-3.4) 02/22/22 05:00 [place] # (Auto) 1.39 K/uL (0.24-0.82) H 02/22/22 05:00 Eos # (Auto) 0.36 K/uL (0-0.50) 02/22/22 05:00 Baso # (Auto) 0.06 K/uL (0-0.2) 02/22/22 05:00 Immature Gran # (Auto) 0.03 K/uL (0.00-0.02) H 02/22/22 05:00 Sodium 137 mmol/L (136-145) 02/23/22 07:42 Potassium 4.4 mmol/L (3.5-5.1) 02/23/22 07:42 Chloride 105 mmol/L (98-107) 02/23/22 07:42 Carbon Dioxide 27 mmol/L (21-32) 02/23/22 07:42 Anion Gap 5 (3-11) 02/23/22 07:42 BUN 11 mg/dl (6-23) 02/23/22 07:42 Creatinine 1.13 mg/dl (0.6-1.4) 02/23/22 07:42 Est Cr Clr Drug Dosing 85.4 ml/min 02/23/22 07:42 Est GFR ( Amer) 93.7 ml/min 02/23/22 07:42 Est GFR (Non-Af Amer) 80.9 ml/min 02/23/22 07:42 BUN/Creatinine Ratio 9.7 (10-20) L 02/23/22 07:42 Glucose 115 mg/dl (70-99(Fasting)) H 02/23/22 07:42 Calcium 8.2 mg/dl (8.5-10.1) L 02/23/22 07:42 Magnesium 1.8 mg/dl (1.7-2.4) 02/23/22 07:42 Total Bilirubin 0.3 mg/dl (0.2-1.0) 02/22/22 05:00 AST 19 U/L (13-39) 02/22/22 05:00 ALT 21 U/L (7-52) 02/22/22 05:00 Alkaline Phosphatase 58 U/L (34-104) 02/22/22 05:00 Total Protein 6.9 gm/dl (6.0-8.3) 02/22/22 05:00 Albumin 4.4 gm/dl (3.4-5.0) 02/22/22 05:00 Globulin 2.5 gm/dl (2.5-4.0) 02/22/22 05:00 Albumin/Globulin Ratio 1.8 (0.9-2) 02/22/22 05:00 Lipase 72 U/L (11-82) 02/22/22 05:00 Urine Color Yellow 02/22/22 Unknown Urine Appearance Turbid (Clear) A 02/22/22 Unknown Urine pH 7.5 (4.5-7.5) 02/22/22 Unknown Ur Specific [place] 1.021 (1.000-1.030) 02/22/22 Unknown Urine Protein Trace (Negative) H 02/22/22 Unknown Urine Glucose (UA) Negative (Negative) 02/22/22 Unknown Urine Ketones Negative (Negative) 02/22/22 Unknown Urine Blood 3+ (Negative) H 02/22/22 Unknown Urine Nitrite Negative (Negative) 02/22/22 Unknown Urine Bilirubin Negative (Negative) 02/22/22 Unknown Urine Urobilinogen Negative (Negative) 02/22/22 Unknown Ur Leukocyte Esterase Negative (Negative) 02/22/22 Unknown Urine WBC (Auto) 1-5 /hpf (0-5) 02/22/22 Unknown Urine RBC (Auto) >30 /hpf (0-4) H 02/22/22 Unknown U Hyaline Cast (Auto) 0 /lpf (0-5) 02/22/22 Unknown U Epithel Cells (Auto) 0-5 /lpf (0-5) 02/22/22 Unknown Urine Bacteria (Auto) 2+ (Negative) H 02/22/22 Unknown Urine Crystals Not Reportable 02/22/22 Unknown Calcium Oxalate Crystal Present (None Prsent) A 02/22/22 Unknown SARS-CoV-2, RNA, NAAT NEGATIVE (NEGATIVE) 02/22/22 05:33 Impressions Retrograde Pyelogram 02/22/22 00:00 FL retrograde includes kub CLINICAL HISTORY: LEFT CYSTO STENT COMPARISON STUDY: None. FLUOROSCOPY TIME: 6 seconds. FINDINGS: 3 fluoroscopic spot images of the abdomen demonstrate retrograde opacification of the left renal collecting system followed by placement of a left ureteral stent. Only the proximal portion of the stent is identified and appears in good position. IMPRESSION: Fluoroscopic assistance provided for left ureteral stent placement. ACT 112: Negative or not required by law. Electronically signed by: Nestor San M.D. 02/22/2022 5:25 PM Abdomen/Pelvis CT 02/22/22 04:54 CT OF THE ABDOMEN AND PELVIS WITHOUT CONTRAST CLINICAL HISTORY: Left flank pain. COMPARISON STUDY: KUB November 06, 2014. TECHNIQUE: Axial images of the abdomen and pelvis were obtained without IV contrast. Images were reviewed in the axial, sagittal, and coronal planes. Automated exposure control was utilized for the study. A dose lowering technique was utilized adhering to the principles of ALARA. FINDINGS: Lung bases are unremarkable. No pneumatosis, free air or portal venous gas is present. A 9 mm x 5 mm proximal left ureteral calculus at the L4 level results in moderate left hydronephrosis with moderate left perinephric fluid. No additional ureteral calculi are present. There is no right hydronephrosis. Several additional small bilateral renal calculi measure up to 3 mm. Evaluation of the remainder of the abdomen and pelvis is suboptimal on this unenhanced exam. Liver, spleen, adrenal glands and pancreas are unremarkable. No evidence for a bowel obstruction. There is no lymphadenopathy. No suspicious lesions or fractures are identified within visualized skeletal structures. IMPRESSION: 1. 9 mm x 5 mm proximal left ureteral calculus which results in moderate left hydronephrosis with moderate perinephric fluid. 2. Bilateral nephrolithiasis. ACT 112: Negative or not required by law. Electronically signed by: Romero Morelos M.D. 02/22/2022 6:58 AM Hospital Course (1) Renal colic on left side: Left Renal Colic Obstructive Uropathy Nephrolithiasis UTI ruled out S/P cystoscopy, left retrograde pyelogram, left ureteral stent placement by Dr. Hugo on 02/22/22 -CT abdomen showed: 9 mm x 5 mm proximal left ureteral calculus which results in moderate left hydronephrosis with moderate perinephric fluid. Bilateral nephrolithiasis. -- Blood, urine culture Negative to date Continue IV fluids Empirically received ceftriaxone Pyridium PRN Appreciate Urology Input Strain Urine Pain control Started on Flomax Needs follow-up with urology upon discharge Depression ADHD Currently not on Meds DVT Px: SCDs Total Time Total Time Spent Total Time Spent (In Minutes): 43 minutes Discharge Plan Discharge Items Patient Disposition: Home - Self-Care Reason For Visit: LEFT URETERAL CALCULUS Discharge Diagnosis: Left Renal Colic Obstructive Uropathy Nephrolithiasis Condition on Discharge: Good Activity: Per Instructions section Exercise/Sports: Gradually increase as tolerated Non-emergency contact: Primary Care Provider and Urologist Call non-emergency contact if: you have any medication questions, your symptoms worsen, your pain is worsening, your pain is unusual for you and you have a fever Follow-up/Referrals: Alexei Guy MD [Outside Practitioners] - (Date & Time 03/01/2022 12:40 PM Provider Alexei Guy MD [facility] ) Diet: Heart Healthy Addtl Attending Provider Instructions: Follow up with your Primary Care physician on 03/01/22 as scheduled Follow up with your Urologist for definitive stone therapy in 1-2 weeks as advised --Your blood cultures are pending at the time of discharge. Follow up with your physician for results. Seek immediate medical attention if your symptoms reoccur or worsen Please take all medications as instructed on discharge list below. Please call if you have any questions or problems. You can reach a [facility] hospitalist on duty at [facility] 24 hours a day by calling [phone] Pending Studies at Discharge: Yes Studies:: Blood Cultures Stand-Alone Forms: My [facility], Smoking Cessation Medications and DC Order Prescriptions: New tamsulosin 0.4 mg Capsule 0.4 mg PO HS Qty: 30 0RF phenazopyridine [Pyridium] 100 mg Tablet 100 mg PO TID PRN (Reason: pain) Qty: 30 0RF Discharge Orders: Discharge Order (Routine); Ordered 02/23/22 Ordered By: João Alicia Admission Data Admit Date/Time: 02/22/22 07:52 Attending Provider: João Alicia Admit Provider: João Alicia Primary Care Provider: PCP,NO Other Providers: João Alicia ; Lb Castillo ; Micha Lewis ; Derek Woods ; Ade Kessler ; Andrea Ramos ; Chapis Trinh ; Candi Townsend ; Dilshad Farah ; Luz Gallo ; Catherine Bergeron ; Kenn Juan ; Cory Hugo
[2022-02-23] MEDS ORDERED: TAMSULOSIN HCL 0.4 MG CAP PO SCH (21:00)
== END 2022-02-23 20:59 | disposition home or self-care (01) | DRG 660 ==
LOC: ED 04:44 → EDINP 07:52 → 3W 17:55